=== PATIENT | male | born 1990 | race Caucasian/White ===

== ENCOUNTER 2019-07-29 14:50 | Emergency (ER) | payer SELFPAY ==
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
[2019-07-29 15:17] LABS: Add Manual Diff / Slide Review NO; Basophils Absolute Auto 100 /uL (0-100); Basophils Percent Auto 0.6 % (0-2); Eosinophils Absolute Auto 0 /uL (0-450); Eosinophils Percent Auto 0.1 % (2-4); Hematocrit 45.9 % (41-53); Hemoglobin 15.8 g/dL (13.5-17.5); Lymphocytes Absolute Auto 1100 /uL (1100-4500); Lymphocytes Percent Auto 8.2 % (25-40); Mean Corpuscular HGB Conc 34.3 % (30-36); Mean Corpuscular Hemoglobin 29.3 PG (26-34); Mean Corpuscular Volume 85.4 fL (80-100); Monocytes Absolute Auto 600 /uL (0-900); Monocytes Percent Auto 4.5 % (3-14); Neutrophils Absolute Auto 11500 /uL (1500-7000); Neutrophils Percent Auto 86.6 % (50-75); Platelet Count 236 X10^3/uL (150-400); Red Blood Cell Count 5.38 X10^6/uL (4.5-5.9); Red Cell Distribution Width 13.1 % (11.6-14.8); White Blood Cell Count 13.2 X10^3/uL (4.5-11.0)
[2019-07-29 15:24] LABS: INR 1.1 (0.9-1.3); Prothrombin Time 12.8 SECONDS (10.1-12.7)
[2019-07-29 15:27] LABS: PTT Partial Thromboplastin Tim 28 SECONDS (26.4-36.2)
--- NOTE | 2019-07-29 15:27 | DI.RAD.S_ITS ---
PROCEDURE: XR SHOULDER RT MIN 2V INDICATIONS: RIGHT shoulder pain TECHNIQUE: 3 views of the shoulder were acquired. COMPARISON: [facility], CT, CT CHEST ABD PEL W CON, 07/29/2019, 15:12. FINDINGS: Bones: No fractures or dislocations. No suspicious bony lesions. Visualized ribs appear intact. Soft tissues: No suspicious soft tissue calcifications. Heterogeneity and superficial punctate densities are overlying the skin of the right shoulder which is also seen on CT. IMPRESSION: 1. No fracture or dislocation. 2. Skin calcification overlying the right shoulder. Dictated by: Fabien Mchugh M.D. on 07/29/2019 at 15:53 Approved by: Fabien Mchugh M.D. on 07/29/2019 at 16:01
[2019-07-29 15:35] LABS: Alanine Aminotransferase 18 IU/L (21-72); Albumin 5.1 g/dL (3.5-5.0); Albumin Globulin Ratio 1.8 (1.0-2.8); Alkaline Phosphatase 70 U/L (38-126); Aspartate Aminotransferase 37 IU/L (17-59); BUN Creatinine Ratio 13.6 (6-22); Bilirubin Total 0.7 mg/dL (0.2-1.3); Blood Urea Nitrogen 15 mg/dL (9-20); Calcium 10.2 mg/dL (8.4-10.2); Carbon Dioxide 24 mmol/L (22-32); Chloride 101 mmol/L (98-107); Estimated Glomerular Filt Rate > 60.0 mL/min (>60); Ethanol (ETOH) < 10 mg/dL; Globulin 2.8 g/dL (1.7-4.1); Glucose 66 mg/dL (70-100); HEMOLYSIS < 15 (0-50); Lipase 34 U/L (23-300); Potassium 4.2 mmol/L (3.4-5.1); Sodium 140 mmol/L (137-145); Total Protein 7.9 g/dL (6.3-8.2)
[2019-07-29] MEDS: TET,DIPH,PERTUSS(ACELL),VAC/PF 0.5 ML SYRINGE IM (16:10)
[2019-07-29] MEDS: KETOROLAC 60 MG/2 ML VIAL 30 MG IV (16:12)
[2019-07-29 16:45] VITALS: BP 110/72; PULSE 66; RESP 18; O2SAT 98
== END 2019-07-29 17:05 | disposition home or self-care (01) ==
PROVIDERS: Emergency Provider Nurse Practitioner
DX: S06.0X1A Concussion with loss of consciousness of 30 minutes or less, initial encounter (principal); Z23 Encounter for immunization
CPT/HCPCS: 70450; 71260; 72125; 73030; 74177; 80053; 80320; 83690; 85025; 85610; 85730; 86850; 86900; 86901; 90471; 96374; 99282; 99285; 90715; J1885